=== PATIENT | male | born 1970 | race Caucasian/White ===

== ENCOUNTER 2024-07-12 06:17 | Day surgery (SDC) | payer OTHER, SELFPAY ==
[2024-07-12 08:34] VITALS: BMI 29.7
[2024-07-12 08:53] VITALS: BP 141/91
[2024-07-12 09:13] VITALS: BMI 29.7
[2024-07-12 10:56] VITALS: BP 119/79
[2024-07-12 11:15] VITALS: BP 122/79
[2024-07-12 11:30] VITALS: BP 116/69
== END 2024-07-12 11:50 | disposition home or self-care (01) ==
LOC: SDS 06:17
PROVIDERS: ATTENDING PHYSICIAN Internal Medicine Gastroenterology
DX: D12.0 Benign neoplasm of cecum (principal); D12.3 Benign neoplasm of transverse colon; D12.4 Benign neoplasm of descending colon; D12.5 Benign neoplasm of sigmoid colon; K64.8 Other hemorrhoids; R19.5 Other fecal abnormalities
CPT/HCPCS: 45385; 45380; 88305